=== PATIENT | male | born 1980 | race Caucasian/White ===

== ENCOUNTER 2017-12-16 08:23 | Outpatient (CLI) | payer OTHER ==
--- NOTE | 2017-12-16 11:13 | MRI Report ---
Reason: LOW BACK PAIN Procedure Date: 12/16/2017 Accession Number: [id number] / [id number] Procedure: MRI - Lumbar Spine W/O CPT Code: FULL RESULT: EXAM: MRI LUMBAR SPINE WITHOUT CONTRAST EXAM DATE: 12/16/2017 09:17 AM. CLINICAL HISTORY: 37-year-old with a 6 year history of low back pain and pain radiating into bilateral lower extremities COMPARISON: None. TECHNIQUE: Multiplanar, multisequence T1-weighted and fluid-sensitive sequences of the lumbar spine from T12 to S1 without contrast. Other: None. FINDINGS: Spinal Canal: The conus terminates at L1. The conus medullaris and cauda equina are unremarkable. Alignment: There appears to be 5 degrees of levoconvex scoliotic curvature centered at L1-L2. Straightening of the normal lumbar lordosis. There appears to be 2-3 mm of grade 1 retrolisthesis at L5-S1. Bone Marrow: Five [id number] lumbar vertebral bodies are assumed. No acute fracture seen. There is Modic type I changes seen at L2-L3, L3-L4, and L4-L5 that may be degenerative in nature. There is a T1/T2 hyperintense lesion seen within the T12 vertebral body that may represent hemangioma. No other definite abnormal marrow replacing lesion. Disk Levels/Facets: There is mild to moderate endplate degenerative change, Schmorl's node formation, and mild loss of disk height seen throughout the lumbar spine. There is disk desiccation seen at L2-L3 and L3-L4. T12-L1: Minimal bilateral arthritic facet disease. No spinal canal stenosis. No neuroforaminal narrowing. L1-L2: Minimal bilateral arthritic facet disease and prominent epidural fat. No spinal canal stenosis. Minimal bilateral neuroforaminal narrowing. L2-L3: Slight posterior disk bulge, bilateral arthritic facet disease, and prominent epidural fat. Fluid is seen within the facets bilaterally. Mild spinal canal stenosis. Minimal bilateral neuroforaminal narrowing. L3-L4: Small posterior disk bulge, bilateral arthritic facet disease, and prominent epidural fat. Fluid is seen within the facets bilaterally. Mild to moderate spinal canal stenosis and effacement of the lateral recesses. Mild bilateral neuroforaminal narrowing. L4-L5: Small posterior disk bulge, bilateral arthritic facet disease, and prominent epidural fat. Fluid is seen within the facets bilaterally. Mild to moderate spinal canal stenosis and effacement of the lateral recesses. Mild bilateral neuroforaminal narrowing. L5-S1: Small central disk protrusion and bilateral arthritic facet disease. Effacement of the lateral recesses with contact of the traversing bilateral S1 nerve roots, greater on the left. Mild to moderate bilateral neuroforaminal narrowing. Musculature: Normal. No edema or fatty atrophy. Other: The partially visualized retroperitoneum is unremarkable. IMPRESSION: 1. There appears to be 5 degrees of levoconvex scoliotic curvature centered at L1-L2. Straightening of the normal lumbar lordosis. 2. There appears to be 2-3 mm of grade 1 retrolisthesis at L5-S1. 3. Multilevel degenerative changes. L2-L3: Mild spinal canal stenosis. Minimal bilateral neuroforaminal narrowing. L3-L4: Mild to moderate spinal canal stenosis and effacement of the lateral recesses. Mild bilateral neuroforaminal narrowing. L4-L5: Mild to moderate spinal canal stenosis and effacement of the lateral recesses. Mild bilateral neuroforaminal narrowing. L5-S1: Effacement of the lateral recesses with contact of the traversing bilateral S1 nerve roots, greater on the left. Mild to moderate bilateral neuroforaminal narrowing. Comment: The following findings are so common in adults without low back pain that while we report their presence, they must be interpreted with caution and in the context of the clinical situation. (Reference Hunterk et al, Spine 2001) Prevalence of findings in patients without low back pain: Disk degeneration (any evidence): 92% Disk desiccation/T2 signal loss: 83% Disk height loss: 56% Disk bulge: 64% Disk protrusion: 32% Annular tear/high intensity zone: 38% [facility]
== END 2017-12-16 08:24 | disposition home or self-care (01) ==
LOC: DI 08:23
PROVIDERS: ATTEND General Practice
DX: M48.061 Spinal stenosis, lumbar region without neurogenic claudication (principal); M41.86 Other forms of scoliosis, lumbar region
CPT/HCPCS: 72148

== ENCOUNTER 2017-12-25 17:04 | Outpatient (CLI) | payer OTHER ==
--- NOTE | 2017-12-26 16:40 | MRI Report ---
Reason: PAIN IN RIGHT SHOULDER Procedure Date: 12/25/2017 Accession Number: [id number] / [id number] Procedure: MRI - Shoulder RT W/O CPT Code: FULL RESULT: EXAM: RIGHT SHOULDER MRI WITHOUT CONTRAST EXAM DATE: 12/25/2017 06:32 PM. CLINICAL HISTORY: Right shoulder pain for several weeks. COMPARISON: None. TECHNIQUE: Multiplanar, multisequence T1-weighted and fluid-sensitive sequences of the shoulder without contrast. Other: None. FINDINGS: Acromioclavicular Region: The acromion is type II. Mild acromioclavicular osteoarthropathy is evidenced by bony hypertrophy, periarticular marrow edema, periarticular cyst formation, and capsular hypertrophy/edema. There is also a small joint effusion. The coracoacromial and coracoclavicular ligaments are intact. A minimal amount of fluid is in the subacromial/subdeltoid bursa. Glenohumeral Region: No subluxation. No effusion or loose bodies. The articular cartilage is unremarkable. The glenohumeral ligaments and joint capsule are unremarkable. Bone Marrow: No fractures. Cyst in the greater tuberosity. Labrum: The labrum is unremarkable on this nonarthrographic study. Musculature/Rotator Cuff: The subscapularis tendon is unremarkable. The supraspinatus tendon has a partial-thickness, joint-sided tear of the mid to 1.4 cm of the tendon. The tear is 7 mm in length and 50% in thickness (701/21; 501/11). The infraspinatus and teres minor tendons are intact. No edema or fatty atrophy. Biceps Tendon: The long head of the biceps tendon and biceps duong are intact. Other: The subcutaneous tissues are unremarkable. IMPRESSION: 1. Mild acromioclavicular osteoarthropathy. 2. Minimal subacromial/subdeltoid bursitis. 3. Partial tear of the supraspinatus tendon. [facility] MUSCULOSKELETAL RADIOLOGY SECTION
== END 2017-12-25 17:05 | disposition home or self-care (01) ==
LOC: DI 17:04
PROVIDERS: ATTEND General Practice
DX: M19.011 Primary osteoarthritis, right shoulder (principal); M75.101 Unspecified rotator cuff tear or rupture of right shoulder, not specified as traumatic; M75.51 Bursitis of right shoulder

== ENCOUNTER 2018-03-02 18:52 | Outpatient (CLI) | payer OTHER | END 2018-03-02 18:53 | disposition home or self-care (01) | LOC: SC 18:52 | PROVIDERS: ATTEND Internal Medicine Pulmonary Disease | DX: G47.33 Obstructive sleep apnea (adult) (pediatric) (principal); G47.61 Periodic limb movement disorder | CPT/HCPCS: 95810 ==

== ENCOUNTER 2018-03-23 13:10 | Outpatient (CLI) | payer OTHER | END 2018-03-23 13:11 | disposition home or self-care (01) | LOC: SC 13:10 | PROVIDERS: ATTEND Nurse Practitioner Family | DX: G47.33 Obstructive sleep apnea (adult) (pediatric) (principal); R61 Generalized hyperhidrosis | CPT/HCPCS: 99212; 99214 ==

== ENCOUNTER 2018-04-23 08:12 | Outpatient (CLI) | payer OTHER | END 2018-04-23 08:13 | disposition home or self-care (01) | LOC: SC 08:12 | PROVIDERS: ATTEND Nurse Practitioner Family | DX: G47.33 Obstructive sleep apnea (adult) (pediatric) (principal) | CPT/HCPCS: 99212; 99215 ==

== ENCOUNTER 2019-03-26 17:07 | Emergency (ER) | payer OTHER ==
[2019-03-26 17:14] VITALS: BP 132/74
[2019-03-26] MEDS ORDERED: predniSONE 20 MG TABLET PO STA (17:36)
--- NOTE | 2019-03-26 17:38 | ED Physician Documentation ---
PD HPI SKIN - Stated complaint Stated Complaint: RASH - Chief complaint Chief Complaint: Wound - History obtained from History obtained from: Patient - History of Present Illness Timing - onset: Last night Timing - duration: Days (1) Timing - details: Gradual onset Pain level max: 0 Pain level now: 0 Location: Bodywide Quality / character: Itchy Improved by: Benadryl Worsened by (comment): COMMENT (Nothing) Associated symptoms: No: Fever, Myalgias, Joint pain, Headache, Facial swelling, Dyspnea, Abd pain, N/V/D, Urinary sx Contributing factors: Unknown. No: Exposed to medication, Exposed to food, Exposed to soap / lotion, Exposed to Poison dania/oak, Insect bite /sting, Recent illness Similar symptoms before: Has not had sx before Recently seen: Not recently seen Review of Systems Ten Systems: 10 systems reviewed and negative Constitutional: denies: Fever, Chills Ears: denies: Ear pain Nose: denies: Rhinorrhea / runny nose, Congestion Cardiac: denies: Chest pain / pressure Respiratory: denies: Dyspnea, Cough, Wheezing GI: denies: Vomiting, Diarrhea Musculoskeletal: denies: Neck pain, Back pain PD PAST MEDICAL HISTORY - Past Medical History Past Medical History: No - Past Surgical History Past Surgical History: No - Present Medications Home Medications: Ambulatory Orders Medication Instructions Recorded Confirmed predniSONE [Deltasone] 10 mg PO [id number] #[id number] tab 03/26/19 - Allergies Allergies/Adverse Reactions: Allergies Allergy/AdvReac Type Severity Reaction Status Date / Time No Known Drug Allergies Allergy Verified 03/26/19 17:14 - Living Situation Living Situation: reports: With family Living Arrangement: reports: At home PD ED PE NORMAL - Vitals Vital signs reviewed: Yes - General General: Alert and oriented X 3, No acute distress - HEENT HEENT: Moist mucous membranes - Neck Neck: Supple, no meningeal sign - Cardiac Cardiac: RRR - Respiratory Respiratory: No respiratory distress, Clear bilaterally - Derm Derm: Warm and dry, Other (Diffuse maculopapular exanthem. Blanches easily.) - Neuro Neuro: Alert and oriented X 3 Results - Vitals Vitals: Vital Signs - 24 hr 03/26/19 17:12 Temperature 36.5 C Heart Rate 75 Respiratory 16 Rate Blood Pressure 132/74 H O2 Saturation 97 Oxygen O2 Source Room air PD MEDICAL DECISION MAKING - ED course Complexity details: considered differential, d/w patient ED course: Patient with a rash of unclear etiology. No stridor. No wheezing. Will place on steroids. Patient counseled regarding signs and symptoms for which I believe and urgent re-evaluation would be necessary. Patient with good understanding of and agreement to plan and is comfortable going home at this time This document was made in part using voice recognition software. While efforts are made to proofread this document, sound alike and grammatical errors may occur. Departure - Departure Disposition: 01 Home, Self Care Clinical Impression: Dermatitis Condition: Good Instructions: ED Dermatitis Non Specific Rash Follow-Up: ROBERT NELSON III, MD [Primary Care Provider] - Within 1 week Prescriptions: predniSONE [Deltasone] 10 mg PO [id number] #[id number] tab Comments: Return if you worsen. This should continue to improve with the steroids. The cause of your symptoms is unclear today.
== END 2019-03-26 17:48 | disposition home or self-care (01) ==
LOC: ED 17:07
DX: L30.9 Dermatitis, unspecified (principal)
CPT/HCPCS: 99282; 99284; J7512